=== PATIENT | male | born 1970 | race Caucasian/White ===

== ENCOUNTER 2017-11-01 16:12 | Observation (INO) | END 2017-11-02 18:51 | disposition home or self-care (01) ==

== ENCOUNTER 2018-02-18 08:26 | Emergency (ER) | END 2018-02-18 09:31 | disposition home or self-care (01) ==

== ENCOUNTER 2018-03-24 06:00 | Emergency (ER) | payer OTHER ==
[~2018-03-24] VITALS: Ht 180.3 cm; Wt 80.6 kg
[~2018-03-24 06:00] MED LIST: ALBU8.5H8 INH; CYCL10TA7 PO; HYDR-3980 PO; HYDR-4011 PO; MED4DP PO
[2018-03-24 06:03] VITALS: BP 139/99; PULSE 91; RESP 18; Ht 180.3 cm; Wt 80.6 kg
[2018-03-24] MEDS ORDERED: BEN25 PO (06:51)
[2018-03-24] MEDS ORDERED: HYDR-3029 PO (06:51)
[2018-03-24] MEDS ORDERED: ELIM TOP (06:51)
--- NOTE | 2018-03-24 08:24 | ERD ---
ER Documentation Chief Complaint Chief Complaint states right leg spider bite a month ago, c/o body rash HPI 48-year-old male presenting with rash to leg and arms. He states 1 month ago he was bitten by spider on the medial aspect of his right leg. He is worried that the rash has developed because of the bite. He has not taken medications for rash. He describes a rash is very itchy. He has a medical history of COPD. NKDA. Surgical history denies. Social history denies ROS All systems reviewed and are negative except as per history of present illness. Medications Home Meds Active Scripts Diphenhydramine Hcl* (Benadryl*) 25 Mg Cap, 25 MG PO Q6, #30 CAP Prov:ARTEM GRAY PA-C 03/24/18 Permethrin* (Elimite*) 5% Cr, 1 APPLIC TOP ONCE, #1 TUB Prov:ARTEM GRAY PA-C 03/24/18 Hydroxyzine Hcl* (Hydroxyzine Hcl*) 10 Mg Tablet, 10 MG PO Q6H PRN for ITCHING, #30 TAB Prov:ARTEM GRAY PA-C 03/24/18 Albuterol Sulfate* (Proair HFA*) 8.5 Gm Hfa.aer.ad, 2 PUFF INH Q4, #1 INHALER Prov:ARTEM GRAY PA-C 02/18/18 Methylprednisolone* (Medrol* DOSE PACK) 4 Mg/Dose-Pack Tab.ds.pk, 4 MG PO . DIRECTED, #1 PACKET Prov:ARTEM GRAY PA-C 02/18/18 Hydrocodone/Acetaminophen (Pelsor 5-325 Tablet) 1 Each Tablet, 1 TAB PO Q6H PRN for PAIN, #7 TAB Prov:ARTEM GRAY PA-C 02/18/18 Albuterol Sulfate* (Proair HFA*) 8.5 Gm Hfa.aer.ad, 2 PUFF INH Q6 for SOB, #1 INHALER Prov:JUAN QUINN NP 11/02/17 Cyclobenzaprine Hcl* (Cyclobenzaprine Hcl*) 10 Mg Tablet, 10 MG PO TID, #15 TAB Prov:JUAN QUINN NP 11/02/17 Hydrocodone/Acetaminophen (Pelsor 10-325 Tablet) 1 Each Tablet, 1 EACH PO Q6H for pain, #6 TAB Prov:JUAN QUINN FORMING OPERATOR 11/02/17 Allergies Allergies: Coded Allergies: No Known Allergy (Unverified , 03/17/12) PMhx/Soc History of Surgery: No Anesthesia Reaction: No Hx Neurological Disorder: No Hx Respiratory Disorders: Yes Hx Cardiac Disorders: Yes Hx Psychiatric Problems: No Hx Miscellaneous Medical Probl: No Hx Alcohol Use: Yes Hx Substance Use: No Hx Tobacco Use: Yes Smoking Status: Never smoker FmHx Family History: No diabetes, No coronary disease, No other Physical Exam Vitals Vital Signs Date Temp Pulse Resp B/P (MAP) Pulse Ox O2 O2 Flow FiO2 Time Delivery Rate 03/24/18 97.0 91 18 139/99 97 06:03 (112) Physical Exam GENERAL: The patient is well-appearing, well-nourished, in no acute distress HEENT: Atraumatic. Conjunctivae are pink. Pupils equal, round, and reactive to light. There is no scleral icterus. Tympanic membranes clear bilaterally. Oropharynx clear. CHEST: Clear to auscultation bilaterally. There are no rales, wheezes or rhonchi. HEART: Regular rate and rhythm. No murmurs, clicks, rubs or gallops. No S3 or S4. SKIN: Red erythematous papules noted to arms and legs. Procedures/MDM MDM: 48-year-old male presenting with rash. Patient may have scabies infestation so I will treat with creams. I have low suspicion for life- threatening rash. I have low suspicion for bacterial infection. Patient is dis charged with supportive medications and told to follow-up with primary care within 1-2 days for close evaluation. Patient is told symptoms change or worsen to immediately return to the ER. All questions answered at discharge Departure Diagnosis: Primary Impression: Rash Condition: Stable Patient Instructions: Self-Care for Skin Rashes Referrals: COMMUNITY CLINICS YOU HAVE RECEIVED A MEDICAL SCREENING EXAM AND THE RESULTS INDICATE THAT YOU DO NOT HAVE A CONDITION THAT REQUIRES URGENT TREATMENT IN THE EMERGENCY DEPARTMENT. FURTHER EVALUATION AND TREATMENT OF YOUR CONDITION CAN WAIT UNTIL YOU ARE SEEN IN YOUR DOCTORS OFFICE WITHIN THE NEXT 1-2 DAYS. IT IS YOUR RESPONSIBILITY TO MAKE AN APPOINTMENT FOR FOLOW-UP CARE. IF YOU HAVE A PRIMARY DOCTOR --you should call your primary doctor and schedule an appointment IF YOU DO NOT HAVE A PRIMARY DOCTOR YOU CAN CALL OUR PHYSICIAN REFERRAL HOTLINE AT IF YOU CAN NOT AFFORD TO SEE A PHYSICIAN YOU CAN CHOSE FROM THE FOLLOWING [facility] CLINICS [facility] [address] [facility] [address] [facility] [address] [facility] [address] [facility] [address] [facility]. [facility] [address] Additional Instructions: FOLLOW UP WITH YOUR PRIMARY CARE PHYSICIAN TOMORROW.Return to this facility if you are not improving as expected. ARTEM GRAY PA-C Mar 24, 2018 08:24
== END 2018-03-24 07:10 | disposition home or self-care (01) ==
LOC: FTE 06:00
DX: R21 Rash and other nonspecific skin eruption (principal)
CPT/HCPCS: 99283

== ENCOUNTER 2019-01-04 15:30 | Inpatient (IN) | payer OTHER ==
[~2019-01-04] VITALS: Ht 180.3 cm; Wt 77.5 kg
[~2019-01-04 15:30] MED LIST changes: +ACET325T33 PO; +ALBU18HF INHALATION; -ALBU8.5H8 INH; +ATOR20TA65 PO; +BENZ-6 PO; -CYCL10TA7 PO; +GUAI5SYR2 PO; -HYDR-3980 PO; -HYDR-4011 PO; +ISOS10TA2 PO; +LABE100T7 PO; +LEVO500T48 PO; -MED4DP PO; +MULTI PO; +NAPR-985 PO; +Nicotine (14 Mg/24 Hr) TRANSDERM; +SYMB80120 INHALATION; +TIOT18CA INHALATION
[2019-01-04] MEDS ORDERED: ONDANSETRON 4 MG INJ IV PRN ×2 (16:00→17:30)
[2019-01-04] MEDS ORDERED: ACETAMINOPHEN 325 MG TAB PO PRN ×2 (16:00→17:30)
[2019-01-04] MEDS ORDERED: NACL 0.9% 3 ML SYG IV SCH (17:30)
[2019-01-04] MEDS ORDERED: MAGNESIUM HYDROXIDE 30ML CUP PO PRN (17:30)
[2019-01-04] MEDS ORDERED: hydrALAzine 20 MG INJ IV PRN (17:30)
[2019-01-04] MEDS ORDERED: NITROGLYCERIN (SL) 0.4 MG TAB SL PRN (17:30)
[2019-01-04] MEDS ORDERED: DOCUSATE SODIUM 100 MG CAP PO PRN (17:30)
[2019-01-04] MEDS ORDERED: ALBUTEROL/IPRATROPIUM (NEB) 3 ML AMP HHN PRN (17:30)
[2019-01-04] MEDS: SOD CHLORIDE 0.45% 1,000 ML IV SCH (17:46)
[2019-01-04] MEDS: PIPER-TAZO 3.375 GM IV (PMX) 100 ML IVPB SCH ×2 (18:14→23:56)
[2019-01-04] MEDS: NICOTINE (21 MG/24 HR) PATCH TRANSDERM SCH (19:30)
[2019-01-04 19:35] VITALS: BP 130/68; PULSE 89; RESP 17
[2019-01-04 19:59] VITALS: Ht 180.3 cm; Wt 77.5 kg
[2019-01-04] MEDS ORDERED: NON-FORMULARY/PATIENT OWN MED (Budesonide-Formoterol Fumarate* (Symbicort*) 2 PUFFS) INHALATION SCH (21:00)
[2019-01-05 01:36] VITALS: BP 138/70; PULSE 86; RESP 18
[2019-01-05] MEDS: PIPER-TAZO 3.375 GM IV (PMX) 100 ML IVPB SCH ×2 (05:56→12:42)
[2019-01-05] MEDS: SOD CHLORIDE 0.45% 1,000 ML IV SCH ×2 (05:56→21:36)
[2019-01-05 07:34] VITALS: BP 132/81; PULSE 83; RESP 18
[2019-01-05] MEDS: NICOTINE (21 MG/24 HR) PATCH TRANSDERM SCH (09:00)
[2019-01-05] MEDS: LORAZEPAM 2 MG INJ IV PRN (09:46)
[2019-01-05] MEDS: FLUTICASONE/VILANTEROL 100-25 INH SCH (12:42)
[2019-01-05] MEDS: HYDROCODONE/APAP (5/325) TAB PO PRN ×2 (12:44→19:03)
[2019-01-05] MEDS: LEVOFLOXACIN 500MG/D5W (PMX) 100 ML IVPB SCH (14:31)
[2019-01-05 14:53] VITALS: BP 114/78; PULSE 89; RESP 16
[2019-01-05 20:14] VITALS: BP 132/83; PULSE 91; RESP 18
[2019-01-06] MEDS: HYDROCODONE/APAP (5/325) TAB PO PRN ×3 (01:18→19:54)
[2019-01-06 02:00] VITALS: BP 149/88; PULSE 87; RESP 18
[2019-01-06] MEDS: morphine 2 MG INJ IV PRN (04:31)
[2019-01-06 07:54] VITALS: BP 128/81; PULSE 83; RESP 16
[2019-01-06] MEDS: FLUTICASONE/VILANTEROL 100-25 INH SCH (10:03)
[2019-01-06] MEDS: NICOTINE (21 MG/24 HR) PATCH TRANSDERM SCH (10:07)
[2019-01-06] MEDS: LEVOFLOXACIN 500MG/D5W (PMX) 100 ML IVPB SCH (14:05)
[2019-01-06 14:42] VITALS: BP 127/71; PULSE 98; RESP 16
[2019-01-06] MEDS: MULTIVITAMINS THERAPEUTIC TAB PO SCH (15:08)
[2019-01-06 19:30] VITALS: BP 126/80; PULSE 89; RESP 16
[2019-01-07] MEDS: LORAZEPAM 2 MG INJ IV PRN ×2 (00:06→22:53)
[2019-01-07 01:55] VITALS: BP 118/72; PULSE 79; RESP 16
[2019-01-07] MEDS: HYDROCODONE/APAP (5/325) TAB PO PRN ×2 (05:09→21:16)
[2019-01-07 07:52] VITALS: BP 125/83; PULSE 85; RESP 19
[2019-01-07] MEDS: FLUTICASONE/VILANTEROL 100-25 INH SCH (09:23)
[2019-01-07] MEDS: MULTIVITAMINS THERAPEUTIC TAB PO SCH (09:23)
[2019-01-07] MEDS: NICOTINE (21 MG/24 HR) PATCH TRANSDERM SCH (09:24)
[2019-01-07] MEDS: LEVOFLOXACIN 500MG/D5W (PMX) 100 ML IVPB SCH (13:20)
[2019-01-07 15:04] VITALS: BP 128/78; PULSE 101; RESP 18
[2019-01-07 19:36] VITALS: BP 128/80; PULSE 95; RESP 18
[2019-01-07] MEDS: LABETALOL 100 MG TAB PO SCH (22:04)
[2019-01-08 02:01] VITALS: BP 110/64; PULSE 79; RESP 18
[2019-01-08] MEDS: LEVOFLOXACIN 500 MG TAB PO SCH (06:28)
[2019-01-08] MEDS: HYDROCODONE/APAP (5/325) TAB PO PRN ×3 (06:29→20:58)
[2019-01-08] MEDS: LORAZEPAM 2 MG INJ IV PRN ×2 (07:11→17:06)
[2019-01-08 07:40] VITALS: BP 118/81; PULSE 85; RESP 18
[2019-01-08] MEDS: NICOTINE (21 MG/24 HR) PATCH TRANSDERM SCH (09:10)
[2019-01-08] MEDS: FLUTICASONE/VILANTEROL 100-25 INH SCH (09:10)
[2019-01-08] MEDS: MULTIVITAMINS THERAPEUTIC TAB PO SCH (09:12)
[2019-01-08] MEDS: LABETALOL 100 MG TAB PO SCH ×2 (09:12→20:58)
[2019-01-08 14:35] VITALS: BP 118/72; PULSE 96; RESP 22
[2019-01-08 19:43] VITALS: BP 110/59; PULSE 92; RESP 18
[2019-01-09 02:30] VITALS: BP 101/61; PULSE 86; RESP 16
[2019-01-09] MEDS: HYDROCODONE/APAP (5/325) TAB PO PRN ×3 (04:01→22:05)
[2019-01-09] MEDS: LORAZEPAM 2 MG INJ IV PRN ×2 (05:18→23:25)
[2019-01-09] MEDS: LEVOFLOXACIN 500 MG TAB PO SCH (05:18)
[2019-01-09 07:25] VITALS: BP 123/85; PULSE 91; RESP 22
[2019-01-09] MEDS: MULTIVITAMINS THERAPEUTIC TAB PO SCH (08:49)
[2019-01-09] MEDS: FLUTICASONE/VILANTEROL 100-25 INH SCH (08:49)
[2019-01-09] MEDS: LABETALOL 100 MG TAB PO SCH ×2 (08:50→20:10)
[2019-01-09] MEDS: NICOTINE (21 MG/24 HR) PATCH TRANSDERM SCH (08:50)
[2019-01-09 14:07] VITALS: BP 121/73; PULSE 98; RESP 20
[2019-01-09 19:46] VITALS: BP 117/76; PULSE 92; RESP 18
[2019-01-09] MEDS: ISOSORBIDE DINITRATE 10 MG TAB PO SCH (20:10)
[2019-01-09] MEDS ORDERED: AL HYDROX/MG HYDROX/SIMETH 30 ML CUP PO PRN (20:30)
[2019-01-10 02:17] VITALS: BP 110/58; PULSE 80; RESP 18
[2019-01-10] MEDS: HYDROCODONE/APAP (5/325) TAB PO PRN ×2 (05:16→13:23)
[2019-01-10] MEDS: LEVOFLOXACIN 500 MG TAB PO SCH (05:16)
[2019-01-10 07:49] VITALS: BP 130/87; PULSE 87; RESP 18
[2019-01-10] MEDS: FLUTICASONE/VILANTEROL 100-25 INH SCH (09:04)
[2019-01-10] MEDS: MULTIVITAMINS THERAPEUTIC TAB PO SCH (09:05)
[2019-01-10] MEDS: LABETALOL 100 MG TAB PO SCH (09:05)
[2019-01-10] MEDS: ISOSORBIDE DINITRATE 10 MG TAB PO SCH ×2 (09:05→13:16)
[2019-01-10] MEDS: LORAZEPAM 2 MG INJ IV PRN (09:06)
[2019-01-10] MEDS: NICOTINE (21 MG/24 HR) PATCH TRANSDERM SCH (09:08)
[2019-01-10] MEDS: morphine 2 MG INJ IV PRN (11:10)
[2019-01-10 13:40] VITALS: BP 111/65; PULSE 101; RESP 18
[2019-01-10] MEDS ORDERED: ATORVASTATIN 20 MG TAB PO SCH (21:00)
== END 2019-01-10 18:40 | disposition home or self-care (01) | DRG 195 ==
LOC: E/R 15:30 → 2NE 15:33
PROVIDERS: ADMIT Hospitalist; ATTEND Internal Medicine
DX: J18.9 Pneumonia, unspecified organism (principal); J44.9 Chronic obstructive pulmonary disease, unspecified; E78.5 Hyperlipidemia, unspecified; F17.200 Nicotine dependence, unspecified, uncomplicated; F99 Mental disorder, not otherwise specified; G89.4 Chronic pain syndrome; I10 Essential (primary) hypertension; M54.12 Radiculopathy, cervical region; M48.02 Spinal stenosis, cervical region; R00.2 Palpitations
CPT/HCPCS: 70450; 71045; 80048; 80061; 83036; 83605; 83735; 84100; 84439; 84443; 84484; 85025; 87081; 87400; 93005; 93306; 94664; 97161; J1956; J2060; J2270; J2543